=== PATIENT | male | born 1950 | race Caucasian/White ===

== ENCOUNTER → 2024-10-01 15:44 | Outpatient (REF) | payer MEDICARE, OTHER, SELFPAY | LOC: HWRCS 15:44 | PROVIDERS: ATTENDING PHYSICIAN Internal Medicine Cardiovascular Disease; FAMILY PHYSICIAN Internal Medicine | DX: I10 Essential (primary) hypertension (principal); I25.10 Atherosclerotic heart disease of native coronary artery without angina pectoris; E78.00 Pure hypercholesterolemia, unspecified; I25.2 Old myocardial infarction; Z95.5 Presence of coronary angioplasty implant and graft; F17.200 Nicotine dependence, unspecified, uncomplicated; R07.89 Other chest pain; I73.9 Peripheral vascular disease, unspecified | CPT/HCPCS: 93306 ==

== ENCOUNTER → 2024-10-02 08:01 | Outpatient (REF) | payer MEDICARE, OTHER, SELFPAY | LOC: HWRCS 08:01 | PROVIDERS: ATTENDING PHYSICIAN Internal Medicine Cardiovascular Disease; FAMILY PHYSICIAN Internal Medicine | DX: I10 Essential (primary) hypertension (principal); I25.10 Atherosclerotic heart disease of native coronary artery without angina pectoris; E78.00 Pure hypercholesterolemia, unspecified; I25.2 Old myocardial infarction; Z95.5 Presence of coronary angioplasty implant and graft; F17.200 Nicotine dependence, unspecified, uncomplicated; R07.89 Other chest pain | CPT/HCPCS: 78452; 93017; A9500; J2785 ==

== ENCOUNTER 2024-10-19 06:08 | Day surgery (SDC) | payer MEDICARE, OTHER, SELFPAY ==
[2024-10-19] VITALS (11 sets, daily range): BP systolic 122–139; BP diastolic 56–67; BMI 27.3
[2024-10-19] MEDS: NSS 216 ML IV (07:02)
[2024-10-19 09:36] LABS: ACT-LR - POC 347 Seconds (116-155)
--- NOTE | 2024-10-19 09:57 | ITS.CL.ANGIO ---
Card Scraper - Angioplasty
Angioplasty
Procedure Report:
CARDIAC CATHETERIZATION REPORT
Date of Procedure: 10/19/2024
Referring: Benigno Sullivan M.D.
INDICATION: Known coronary artery disease, accelerating angina, abnormal stress test.
PROCEDURE:
1. Left heart catheterization.
2. Coronary angiography.
3. Intracoronary lithotripsy.
4. Successful IVUS guided PCI of the proximal/mid LAD.
A total of 69 minutes of procedural/moderate sedation was utilized. An independent medical insurance collector was present to assist with and help manage the patient's level of consciousness and physiologic status.
ACCESS:
1. 6 Mong[place]ian right radial artery using a modified Seldinger technique.
CATHETERS:
1. 5 Mongolian JR4.
2. 5 Mongolian JL 3.5.
3. 6 Mong[place]ian EBU 3.5 guiding catheter.
HEMODYNAMIC DATA
Weight (kg): 72.0
AO (s/d/x, mmHg): 110/54/74
LV (s/x mmHg): 111/15
LEFT VENTRICULOGRAPHY: Not performed.
CORONARY ANGIOGRAPHY
Dominance: Codominant.
Left Main: Relatively short, bifurcating vessel. There is no coronary artery disease.
LAD: Normal size vessel giving rise to 1 significant diagonal. A stent is present in the mid vessel. There is dense atherosclerosis with a 70% lesion in the proximal vessel leading into a 95% in-stent restenosis lesion with MARI II flow and
competitive flow in the apical vessel.
Ramus: Congenitally absent.
Circumflex: Large size, codominant vessel giving rise to 1 large obtuse marginal before terminating as a partial LPDA supplying the base of the inferior septum. The obtuse marginal bifurcates into several daughter branches. There is a patent
stent in the body of the obtuse marginal. There are minor luminal irregularities.
RCA: Small to medium size, codominant vessel giving rise to a partial RPDA supplying the distal inferior septum. Right to left collaterals are seen supplying the apical and distal LAD.
INTERVENTION(S)
1. Successful intracoronary lithotripsy (Shockwave 3.5 x 12 lithotripsy balloon).
2. Successful IVUS guided PCI of the 70% proximal LAD de matheus lesion and the 95% mid LAD ISR lesion (Medtronic [place] Wilkinson 3.5 x 38 BINH, postdilated with a 3.5 NC balloon) with reduction in stenosis to 0%, restoring MARI-3 flow.
Narrative:
The decision was made to proceed with percutaneous coronary intervention. The diagnostic catheter was removed over a wire and a 6Fr EBU 3.5 guiding catheter was advanced to the aortic root and seated in the left main coronary artery. Additional
heparin was given and a Power Turn Flex wire was advanced into the distal LAD. The 70% proximal LAD and 95% mid LAD ISR lesions were predilated with a 2.0 x 12 semi-compliant balloon to 12 shital. The semicompliant balloon was withdrawn and a 3.0 x 15
noncompliant balloon was advanced. Both lesions were predilated to 12 shital.
The decision was made to perform intracoronary imaging. An IVUS catheter was advanced through the guiding catheter and into the ostium of the artery. Ring down was performed once the imaging crystal was no longer inside of the guiding catheter. The
IVUS catheter was advanced into the mid LAD, beyond the stented segment. Intravascular ultrasound was performed in a retrograde fashion using a slow pullback. Intracoronary imaging demonstrated diffuse atherosclerotic disease with dense
calcification of the distal stent margin, significant neointimal hyperplasia and a densely calcified, de matheus, proximal LAD lesion. Vessel measurements were taken.
Given the dense calcification, the decision was made to proceed with intracoronary lithotripsy. A Shockwave 3.5 x 12 coronary lithotripsy balloon was advanced over the wire and into the stented mid LAD lesion segment. The balloon was sterilely
connected to the controller and prepped to negative pressure. Meticulous care was taken while positioning the shockwave balloon. Once in satisfactory position, the balloon was inflated to 4 shital. After confirming good contact with the vessel wall,
10 pulses were delivered. After delivering 10 pulses, the balloon was inflated to 6 shital then deflated. The entire lesion was treated in a similar manner for total of 6 rounds. The shockwave balloon was then repositioned and the proximal stent and
proximal LAD lesions were also treated to balloon exhaustion.
The Shockwave balloon was removed and a Medtronic [place] Wilkinson 3.5 x 38 drug-eluting stent was advanced. The stent was deployed at 12 atmospheres. The stent balloon was removed. A 3.5 x 20 noncompliant balloon was advanced into the stent and the
stent was postdilated to 15 atmospheres. IVUS was repeated, showing excellent stent expansion and apposition with no evidence of dissection or vessel disruption. Angiography was performed in orthogonal views, confirming good stent expansion and an
excellent angiographic result. The coronary wire was withdrawn and the guide was disengaged from the artery. The catheter was removed over a standard J-wire.
Closure Device: Vascular band.
Radiation (mGy): 780.05
DAP (cm2.Gy): 64.3109
Fluoroscopy time (minutes): 14.7
CONCLUSIONS
1. Codominant circulation with luminal irregularities in the RCA and circumflex with a patent stent in the body of OM1 and a densely calcified 70% lesion in the proximal LAD followed by a 95% ISR lesion in the mid LAD stent with MARI II flow,
status post successful intracoronary lithotripsy (shockwave 3.5 x 12 lithotripsy balloon) and IVUS guided PCI (Medtronic [place] Wilkinson 3.5 x 38 BINH, postdilated with a 3.5 NC balloon) with reduction in stenosis to 0%, restoring MARI-III flow.
2. Normal filling pressures (LVEDP = 15 mmHg at 72.0 kg).
RECOMMENDATIONS:
1. Expectant management after cardiac catheterization via right radial approach.
2. Limited weight bearing on the right wrist for one week.
3. Dual antiplatelet therapy with aspirin and clopidogrel combined with rivaroxaban 2.5 mg twice daily for known peripheral arterial disease.
4. OMT/GDMT as hemodynamics will tolerate.
5. Aggressive secondary prevention with high-dose, high potency statin. Goal LDL <55.
6. Cardiac rehab referral.
Copy to: Benigno Sullivan M.D., Latoya Keane M.D.
Cody Boothe DO, FACC, FACP
[2024-10-19] MEDS: NSS 540 IV (10:26)
--- NOTE | 2024-10-19 14:22 | W.PN.UPDATE ---
Update Note
Progress Note Update
Pt seen post LAD shockwave lithotripsy with angioplasty and stent. Right radial cath site without ht/bleeding, oob ambulating, urinating without difficulty. Post EKG SB 45, rates on tele 40-50s, asymptomatic. Pt will be on DAPT w/asa, plavix, and
will continue low dose xarelto 2.5mg BID for PAD at this time. Cardiac rehab consulted. Followup at [facility] as scheduled. Due to bradycardia, will decrease metoprolol tartrate to 50mg BID. Home today if cath site/tele remain stable.
[2024-10-19 15:06] LABS: ACT-LR - POC > 397 Seconds (116-155)
== END 2024-10-19 14:30 | disposition home or self-care (01) ==
LOC: CATH 06:08
PROVIDERS: ATTENDING PHYSICIAN Internal Medicine Cardiovascular Disease; FAMILY PHYSICIAN Internal Medicine; OTHER PHYSICIAN Internal Medicine Cardiovascular Disease
DX: I25.110 Atherosclerotic heart disease of native coronary artery with unstable angina pectoris (principal); Z79.02 Long term (current) use of antithrombotics/antiplatelets; Z79.82 Long term (current) use of aspirin; Z79.899 Other long term (current) drug therapy
CPT/HCPCS: 92972; 85347; 92978; 93005; 93458; 99152; 99153; C1725; C1753; C1761; C1874; C1894; C9600; Q9967

== ENCOUNTER 2024-12-02 16:53 | Outpatient (RCR) | payer MEDICARE, OTHER, SELFPAY | END 2024-12-02 23:59 | disposition home or self-care (01) | LOC: CRHB 16:53 | PROVIDERS: ATTENDING PHYSICIAN Internal Medicine Cardiovascular Disease; FAMILY PHYSICIAN Internal Medicine | DX: I25.10 Atherosclerotic heart disease of native coronary artery without angina pectoris (principal); Z95.5 Presence of coronary angioplasty implant and graft | CPT/HCPCS: G0422; G0423 ==

== ENCOUNTER 2025-01-01 16:15 | Outpatient (RCR) | payer MEDICARE, OTHER, SELFPAY | END 2025-01-01 23:59 | disposition home or self-care (01) | LOC: CRHB 16:15 | PROVIDERS: ATTENDING PHYSICIAN Internal Medicine Cardiovascular Disease; FAMILY PHYSICIAN Internal Medicine | DX: I25.10 Atherosclerotic heart disease of native coronary artery without angina pectoris (principal); Z95.5 Presence of coronary angioplasty implant and graft | CPT/HCPCS: G0422; G0423 ==

== ENCOUNTER 2025-02-01 16:51 | Outpatient (RCR) | payer MEDICARE, OTHER, SELFPAY ==
[2025-01-04 10:32] LABS: HDL Cholesterol 27 mg/dl; LDL Cholesterol, Calculated 63 mg/dl; Total Cholesterol 126 mg/dl (50-199); Triglyceride 182 mg/dl (10-149); Very Low Density Lipoprotein 36 mg/dl (0-30)
== END 2025-02-01 23:59 | disposition home or self-care (01) ==
LOC: CRHB 16:51
PROVIDERS: ATTENDING PHYSICIAN Internal Medicine Cardiovascular Disease; FAMILY PHYSICIAN Internal Medicine; OTHER PHYSICIAN Internal Medicine Cardiovascular Disease
DX: I25.10 Atherosclerotic heart disease of native coronary artery without angina pectoris (principal); Z95.5 Presence of coronary angioplasty implant and graft
CPT/HCPCS: 80061; G0422

== ENCOUNTER 2025-02-24 16:07 | Outpatient (RCR) | payer MEDICARE, OTHER, SELFPAY | END 2025-02-25 13:02 | disposition home or self-care (01) | LOC: CRHB 16:07 | PROVIDERS: ATTENDING PHYSICIAN Internal Medicine Cardiovascular Disease; FAMILY PHYSICIAN Internal Medicine; OTHER PHYSICIAN Internal Medicine Cardiovascular Disease | DX: I25.10 Atherosclerotic heart disease of native coronary artery without angina pectoris (principal); Z95.5 Presence of coronary angioplasty implant and graft; I25.2 Old myocardial infarction; I10 Essential (primary) hypertension; E78.00 Pure hypercholesterolemia, unspecified; I73.9 Peripheral vascular disease, unspecified | CPT/HCPCS: G0422 ==